=== PATIENT | female | born 1940 | race Caucasian/White ===

== ENCOUNTER → 2023-11-05 08:17 | Outpatient (REF) | payer OTHER, SELFPAY | LOC: DHCBC/DCA 08:17 | PROVIDERS: ATTENDING PHYSICIAN Nuclear Medicine Nuclear Cardiology; FAMILY PHYSICIAN Internal Medicine | DX: I48.0 Paroxysmal atrial fibrillation (principal); I95.1 Orthostatic hypotension; I10 Essential (primary) hypertension | CPT/HCPCS: 78452; 93017; A9500; J2785 ==

== ENCOUNTER 2023-12-26 15:10 | Emergency (ER) | payer OTHER, SELFPAY ==
[2023-12-26] VITALS (11 sets, daily range): BP systolic 146–186; BP diastolic 64–87; PULSE 70–81; BMI 19.0
[2023-12-26 15:35] LABS: Hematocrit 38.4 % (37.0-47.0); Hemoglobin 13.4 g/dL (12.0-16.0); Mean Corp Hgb Conc. 34.9 g/dL (33.0-37.0); Mean Corpuscular Hgb 32.6 pg (27.0-31.0); Mean Corpuscular Volume 93.4 fL (81.0-99.0); Mean Platelet Volume 9.3 fL (7.4-10.4); Platelet Count 223 10^3/uL (130-400); Red Blood Cell Count 4.11 10^6/uL (4.20-5.40); Red Cell Dist. Width 14.1 % (11.5-14.5); White Blood Cell Count 6.4 10^3/uL (4.8-10.8)
[2023-12-26 15:52] LABS: ALT (SGPT) 19 U/L (0-35); AST (SGOT) 35 U/L (14-36); Albumin 4.8 g/dl (3.5-5.0); Alkaline Phosphatase 82 U/L (38-126); Blood Urea Nitrogen 14 mg/dl (7-17); Carbon Dioxide 32 mmol/L (22-30); Chloride 96 mmol/L (98-107); Estimated Creatinine Clearance 45 ml/min; Glucose 102 mg/dl (70-99); Potassium 4.3 mmol/L (3.5-5.1); Sodium 134 mmol/L (135-145); Total Protein 7.6 g/dl (6.3-8.2); eGFR > 60.00
[2023-12-26 15:59] LABS: Troponin I < 0.012 ng/ml
--- NOTE | 2023-12-26 17:13 | ED.GENMED ---
History of Present Illness
General
Chief Complaint: Blood Pressure Problem
Source: patient
Exam Limitations: none
Time Seen by Provider: 12/26/23 15:25
Nursing documentation reviewed up to this point in time: agreed with
Travel History
Have you had any contact with someone who has COVID-19?: No
Do you have any symptoms of coronavirus? Fever > 100 degrees, chills, cough, shortness of breath, sore throat, loss of taste or smell, muscle aches, or headache?: No
History of Present Illness
History of Present Illness:
83-year-old female with past medical history of A-fib currently on flecainide and Eliquis, hyperlipidemia, anxiety depression presenting to the emergency department today with concerns of an episode of expressive aphasia while at [facility] 2:00
today an hour or so prior to arrival that lasted potentially an hour. Denies additional symptoms with it no numbness or weakness. Denies specific headache initially but had a mild headache afterward. Blood pressure was obtained by EMS after EMS
was called for this and blood pressure was 229/90. Denies missing any medications but was stopped on some blood pressure medications in the past due to having low blood pressure and orthostatic symptoms. Had similar symptoms in the past and did
have neurologic evaluation that did not find any emergent strokelike processes in the past. No symptoms during my assessment
Past History
Past History
ED Past Medical History: Arrthythmia (Atrial fibrillation) and Other (Pacemaker, stress incontinence, cataract surgery)
ED Past Surgical History: Cardiac (Pacemaker), Gynecological (Hysterectomy) and Other (Cataract surgery)
Social History
Tobacco: Non-smoker
Review of Systems
Review of Systems
Allergies reviewed?: Yes
All Other Systems: ROS reviewed and negative except as documented in HPI and ROS
Phy Exam
Physical Exam
Physical Exam:
GENERAL: Alert , in no apparent distress
EYE: pupils equal and reactive
NECK: Supple, no significant adenopathy.
ENT: o/p clr, mmm.
CARDIAC: Regular rate and rhythm .
LUNGS: Clear breath sounds bilaterally, no acute respiratory distress, no wheezes/rales/rhonchi
ABDOMEN: Soft, without focal tenderness, no r/g, no cvat
NEUROLOGICAL: Alert and oriented, no focal neuro deficits 5 out of 5 upper and lower extremity strength normal sensation were palpated bilaterally normal finger-nose [id number] no pronator drift
SKIN: Warm and dry, skin intact.
MUSCULOSKELETAL: No edema, well perfused.
PSYCH: Normal and appropriate interaction.
Course
Orders/Labs/Results
Orders:
Orders
12/26/23 15:14
EKG [Electrocardiogram (*1)] Urgent
Reason for Study: Other
Other Reason for Exam: HTN/ headache
12/26/23 15:15
Electrocardiogram (*1) Urgent
Reason for Study: Other
Other Reason for Exam: HTN/ headache
EKG- Treatment ONCE
12/26/23 15:27
CBC/No Diff [Complete Blood Count/No Diff] Urgent
Comprehensive Metabolic Panel Urgent
Troponin I Urgent
12/26/23 15:35
CT Head W/o Iv Contrast Urgent
Comment:
Reason For Exam: expressive aphasia
12/26/23 15:40
Orthostatic VS- Treatment ONCE
Abnormal Lab Results
12/26/23
15:27
RBC 4.11 L 10^6/uL
(4.20-5.40)
MCH 32.6 H pg
(27.0-31.0)
Sodium 134 L mmol/L
(135-145)
Chloride 96 L mmol/L
(98-107)
Carbon Dioxide 32 H mmol/L
(22-30)
Glucose 102 H mg/dl
(70-99)
12/26/23 15:27
12/26/23 15:27
Vital Signs
Initial and Last Documented VS:
Initial Vital Signs
BP
179/87
12/26/23 15:16
Last Documented Vital Signs
Temp Pulse Resp BP Pulse Ox
97.8 F 72 17 146/79 100
12/26/23 15:17 12/26/23 17:00 12/26/23 17:00 12/26/23 17:00 12/26/23 16:00
MDM/Problems Addressed
MDM/Problems Addressed:
83-year-old female presenting to the emergency department today with concerns of expressive aphasia for roughly 1 hour prior to arrival fully resolved at this point very minimal headache at this time labs unremarkable initial blood pressure in 170s
over 80s other vital signs normal normal neurologic evaluation here. EKG in paced rhythm. Asymptomatic throughout ER stay head CT negative Case discussed with neurology that feels additional emergent evaluation is not required that she should be
monitored closely and can follow-up. She was given very strict return precautions but otherwise stable for discharge. Blood pressure improving throughout ER stay.
*Critical Care Note
Total Time (30-74mins, 75-104mins- exclusive of procedures): Not Applicable
ED Attending Note
-
Portions of this chart may have been created with voice recognition software.� Occasional wrong word or��sound alike� substitutions may have occurred due to the inherent limitations of voice recognition software.
Discharge Plan
Departure
Patient Disposition: Home (Routine Discharge)
Date of Disposition: 12/26/23
Time of Disposition: 18:01
Patient with high blood pressure during this ER visit?: No
Condition: Good
Covid-19: Not Applicable
Discharge Problem:
Expressive aphasia
Instructions: High Blood Pressure (DC)
Prescriptions:
No Action
atorvastatin 40 MG tablet
40 mg PO HS
cholecalciferol (vitamin D3) [Vitamin D3] 1,000 UNIT capsule
2,000 unit PO DAILY
Eliquis 2.5 MG tablet
2.5 mg PO BID
flecainide 50 mg Tablet
50 mg PO Q12H
fludrocortisone 0.1 mg Tablet
0.1 mg PO DAILY
trazodone 50 mg Tablet
12.5 mg PO HSPRN PRN (Reason: ANXIETY)
melatonin 3 mg Tablet
3 mg PO HS
pantoprazole [Protonix] 40 mg Tablet,Delayed Release (Dr/Ec)
40 mg PO DAILY
metoprolol succinate [Toprol XL] 25 mg Tablet Extended Release 24 Hr
25 mg PO DAILY
midodrine 10 mg Tablet
10 mg PO TID
Gemtesa 75 mg Tablet
75 mg PO DAILY
acetaminophen [Tylenol Extra Strength] 500 mg Tablet
1,000 mg PO Q8HPRN PRN (Reason: MILD PAIN)
Referrals:
Julio Kevin MD [Family Provider] -
Activity Restrictions/Additional Instructions:
You came to the emergency department today with symptoms of expressive aphasia. Here you had a reassuring evaluation. Please follow-up with your neurologist closely as an outpatient. Return to the emergency department for any worsening, new or
concerning symptoms.
Interventions
Interventions:
*Risk Screen - Suicide Last Done: 12/26/23 15:17
*General Assessment Last Done: 12/26/23 15:17
*Neglect/Abuse Screening Last Done: 12/26/23 15:17
*ED COVID-19 Vaccine History Last Done: 12/26/23 15:17
ED- Cardiac Assessment Last Done: 12/26/23 15:30
ED- Neurological Assessment Last Done: 12/26/23 15:30
ED- Pulmonary Assessment Last Done: 12/26/23 15:30
Discharge Date and Time
Print Language: [id number]
[2023-12-27 01:20] VITALS: BP 152/60
== END 2023-12-27 01:45 | disposition home or self-care (01) ==
LOC: EMR 15:10
PROVIDERS: EMERGENCY PHYSICIAN Emergency Medicine; FAMILY PHYSICIAN Internal Medicine
DX: R47.01 Aphasia (principal); I48.91 Unspecified atrial fibrillation; E78.5 Hyperlipidemia, unspecified; F41.9 Anxiety disorder, unspecified; F32.A Depression, unspecified
CPT/HCPCS: 99285; 70450; 80053; 84484; 85027; 93005

== ENCOUNTER → 2025-04-06 10:53 | Outpatient (REF) | payer OTHER, SELFPAY | LOC: HWRCS 10:53 | PROVIDERS: ATTENDING PHYSICIAN Nuclear Medicine Nuclear Cardiology; FAMILY PHYSICIAN Internal Medicine | DX: I48.0 Paroxysmal atrial fibrillation (principal); I10 Essential (primary) hypertension; E78.2 Mixed hyperlipidemia | CPT/HCPCS: 93306 ==